=== PATIENT | male | born 1980 ===

== ENCOUNTER 2017-10-01 09:41 | Emergency (ER) | payer SELFPAY ==
[2017-10-01 09:48] VITALS: BP 139/73
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
== END 2017-10-01 10:15 | disposition home or self-care (01) ==
LOC: UCCORT 09:41
DX: L25.9 Unspecified contact dermatitis, unspecified cause (principal)
CPT/HCPCS: 99202; G0463